=== PATIENT | male | born 1990 ===

== ENCOUNTER 2018-07-14 05:10 | Day surgery (SDC) | payer OTHER ==
--- NOTE | 2018-07-13 12:01 | NUR ---
Medical history obtained by using [employer] medical interpreter Gertrudis ID# [id number].
[~2018-07-14] VITALS: Ht 167.6 cm; Wt 107.5 kg
[2018-07-14] VITALS (13 sets, daily range): BP systolic 109–144; BP diastolic 58–77
[~2018-07-14 05:10] MED LIST: NKM
[2018-07-14] MEDS ORDERED: ceFAZolin 1gm IVPB IVPB ONE ×2 (06:00)
[2018-07-14] MEDS ORDERED: celeBREX 200mg Cap **SURGERY PATIENTS ONLY ORAL ONE (06:00)
[2018-07-14] MEDS ORDERED: oxyCONTIN 20mg tab ORAL ONE (06:00)
[2018-07-14] MEDS ORDERED: EPINEPHrine 1mg/1ml Amp ONE ×2 (06:34→08:48)
[2018-07-14] MEDS ORDERED: Duramorph PF 5mg/10ml amp ONE (06:35)
[2018-07-14] MEDS ORDERED: Kenalog-40 1ml Vial ONE (06:35)
[2018-07-14] MEDS ORDERED: Bupivacaine 0.25% Inj 30ml INJ ONE (06:35)
[2018-07-14] MEDS ORDERED: Lidocaine 1% 10mg/ml/Epi 0.005mg/ml 30ml vial INJ ONE (06:36)
[2018-07-14] MEDS ORDERED: LR 1000ml 1,000 ML IVLG SCH (06:37)
--- NOTE | 2018-07-14 06:38 | Anethesia Preoperative Eval ---
Anesthesia Pre-op PMH/ROS General Date of Evaluation: July 14, 2018 Anesthesiologist: Mili ASA Score: ASA 2 Mallampati Score Class I : Soft palate, uvula, fauces, pillars visible Class II: Soft palate, uvula, fauces visible Class III: Soft palate, base of uvula visible Class IV: Only hard plate visible Mallampati Classification: Class II Surgeon: Bryant Diagnosis: R Knee Pain Surgical Procedure: R ACL Repair Anesthesia History: none Family History: no anesthesia problems Allergies: Coded Allergies: No Known Allergies (Unverified , 07/13/18) Medications: see eMAR Patient NPO?: Yes Past Medical History Cardiovascular: Reports: HTN Other: obesity - MORBID BMI 40 Anesthesia Pre-op Phys. Exam Physician Exam Last Vital Signs Date Time Temp Pulse Resp B/P (MAP) Pulse Ox O2 Delivery O2 Flow Rate FiO2 07/14/18 06:03 98.4 88 20 144/77 99 Room Air Constitutional: NAD Neurologic: CN 2-12 intact Cardiovascular: RRR Respiratory: CTA Gastrointestinal: S/NT/ND Airway Exam Mallampati Score: Class II MO: full ROM: limited Teeth: intact Anesthesia Pre-op A/P Risk Assessment & Plan Assessment: ASA 2 Plan: GA, SED Status Change Before Surgery: No Pre-Antibiotics Dru Grams Ancef IV Given Within 1 Hr of Incision: Yes Time Given: 08:16 Mason Garces MD July 14, 2018 06:38
[2018-07-14] MEDS ORDERED: NS Irrig 4000ml IRRIG ONE ×4 (06:41→08:38)
[2018-07-14] MEDS ORDERED: LORazepam Inj 2mg/ml 1ml IV PRN (06:45)
[2018-07-14] MEDS ORDERED: oxyCODONE HCL/Acetaminophen 5/325mg ORAL PRN (06:45)
[2018-07-14] MEDS ORDERED: Metoclopramide 10mg/2ml Inj IVP PRN (06:45)
[2018-07-14] MEDS ORDERED: Labetalol 5mg/ml 20ml vial IV PRN (06:45)
[2018-07-14] MEDS ORDERED: Meperidine 50mg/ml Inj(FOR RIGORS ONLY) IVP PRN (06:45)
[2018-07-14] MEDS ORDERED: Hydromorphone 0.5mg/0.5ml inj IVP PRN (06:45)
[2018-07-14] MEDS ORDERED: DiphenhydrAMINE 50mg/ml Inj IVP PRN (06:45)
[2018-07-14] MEDS ORDERED: Atropine Sulfate 0.4mg/ml inj IVP PRN (06:45)
[2018-07-14] MEDS ORDERED: Acetaminophen (Non formulary) 100 ML IV ONE (06:45)
[2018-07-14] MEDS ORDERED: HYDROcodone/Acetamin 5/325 tab ORAL PRN ×2 (06:45→07:45)
[2018-07-14] MEDS ORDERED: Ketorolac 30mg Inj IV PRN ×2 (06:45)
[2018-07-14] MEDS ORDERED: Midazolam 2mg/2ml Inj IVP PRN (06:45)
[2018-07-14] MEDS ORDERED: fentaNYL 100 mcg/2 mL IV PRN (06:45)
[2018-07-14] MEDS ORDERED: HYDROcodone/Acetamin 7.5/325 tab ORAL PRN (06:45)
--- NOTE | 2018-07-14 06:47 | Immediate Post-Op Evaluation ---
Immediate Post-Op Evalulation Immediate Post-Op Evalulation Procedure: R Knee Arthroscopy Date of Evaluation: July 14, 2018 Time of Evaluation: 10:37 IV Fluids: 1000 LR Blood Products: 0 Estimated Blood Loss: 50 Urinary Output: 0 Blood Pressure Systolic: 116 Blood Pressure Diastolic: 60 Pulse Rate: 92 Respiratory Rate: 16 O2 Sat by Pulse Oximetry: 98 Temperature (Fahrenheit): 97.4 Pain Score (1-10): 2 Nausea: No Vomiting: No Complications 0 Patient Status: awake, reacts, patent, none Hydration Status: adequate Dru Grams Ancef IV Given Within 1 Hr of Incision: Yes Time Given: 08:16 Mason Garces MD July 14, 2018 06:47
--- NOTE | 2018-07-14 06:48 | 48 Hour Post Anesthesia Eval ---
Post Anesthesia Evaluation Procedure: R Knee Arthroscopy Date of Evaluation: July 14, 2018 Time of Evaluation: 12:44 Blood Pressure Systolic: 122 0: 71 Pulse Rate: 89 Respiratory Rate: 18 Temperature (Fahrenheit): 98.2 O2 Sat by Pulse Oximetry: 99 Airway: patent Nausea: No Vomiting: No Pain Intensity: 2 Hydration Status: adequate Cardiopulmonary Status: Stable Mental Status/LOC: patient returned to baseline Follow-up Care/Observations: 0 Post-Anesthesia Complications: 0 Follow-up care needed: ready to discharge Mason Garces MD July 14, 2018 06:48
[2018-07-14] MEDS ORDERED: Sodium Chloride 10ml vial INJ ONE (06:49)
[2018-07-14] MEDS ORDERED: Dexamethasone 4mg/ml vial ONE ×3 (06:49→08:49)
[2018-07-14] MEDS ORDERED: Lidocaine 1% MPF 10mg/ml 5ml ONE (06:49)
--- NOTE | 2018-07-14 07:38 | Operative Note - PDOC ---
Operative Note Operative Note Pre-op Diagnosis: right knee acl tear and medial and lateral minscus tear Procedure: see op report Post-op Diagnosis: same as pre-op plus Operative Findings: consistent w/pre-op dx studies Anesthesia: regional Specimen: none Complications: none Condition: stable Estimated Blood Loss: none Implant(s) used?: Yes Huey Hurtado MD July 14, 2018 07:38
--- NOTE | 2018-07-14 07:38 | Pre-Procedure Note/Attestation ---
Pre-Procedure Note/Attestation Complete Prior to Procedure Planned Procedure: right Procedure Narrative: knee arthroscopy acl reconstrction, possible medial and lateral menisectomy Indications for Procedure Pre-Operative Diagnosis: right knee acl tear and medial and lateral minscus tear Attestation I attest that I discussed the nature of the procedure; its benefits; risks and complications; and alternatives (and the risks and benefits of such alternatives ), prior to the procedure, with the patient (or the patient's legal labor representative). I attest that, if there was a reasonable possibility of needing a blood transfusion, the patient (or the patient's legal labor representative) was given the [facility] standardized written summary, pursuant to the [place] Impact Blood Safety Act ([place] Health and Safety Code # 1645, as amended). I attest that I re-evaluated the patient just prior to the surgery and that there has been no change in the patient's H&P, except as documented below: Huey Hurtado MD July 14, 2018 07:38
[2018-07-14] MEDS ORDERED: HYDROmorphone 1mg/ml Carpuject SUBQ PRN (07:45)
[2018-07-14] MEDS ORDERED: Tylenol #3 tab (300mg/30mg) ORAL PRN (07:45)
[2018-07-14] MEDS ORDERED: D5 1/2NS 1,000 ML IV SCH (07:45)
[2018-07-14] MEDS ORDERED: fentaNYL 100 mcg/2 mL IV ONE (08:34)
[2018-07-14] MEDS ORDERED: Ropivacaine 5mg/ml Vial 30ml INJ ONE (08:47)
--- NOTE | 2018-07-14 18:30 | Operative Note - Dictated ---
DATE OF OPERATION: 07/14/2018 PREOPERATIVE DIAGNOSES: 1. Right knee anterior cruciate ligament tear. 2. Right knee medial meniscus tear. 3. Right knee lateral meniscus tear. PROCEDURES: 1. Right knee arthroscopic anterior cruciate ligament reconstruction tibialis anterior allograft. 2. Right knee medial and lateral meniscectomy. 3. Synovectomy of the lateral patellofemoral compartment. SURGEON: Huey Hurtado M.D. ANESTHESIA: Femoral adductor with general. INDICATION FOR PROCEDURE: The patient is a pleasant gentleman, who has had a significant injury to his knee. He had a tear of the anterior cruciate ligament as well as meniscus. He failed conservative treatment and elected to undergo right knee arthroscopic medial and lateral meniscectomy and anterior cruciate ligament reconstruction. Risks, limitations, expectations, and complications of the procedure were discussed in detail. All questions addressed. DESCRIPTION OF PROCEDURE: After informed consent was obtained, the patient was brought to the operating room and placed under general anesthesia. The right leg was prepped and draped in a sterile manner. Time-out was performed. Examination under anesthesia showed positive reverse pivot shift and anterior Susanna's test. Tibialis anterior allograft was then fashioned on the back table and tensioned. An inferolateral stab incision was then made. Trocar was introduced into the knee joint. There is a significant tear of the posterior horn of medial meniscus. Partial meniscectomy using a shaver was performed. Intercondylar notch was entered. The anterior cruciate ligament was completely torn. The remnants of the anterior cruciate ligament were debrided to better visualize the bony landmarks. Lateral compartment was entered. There was a complete tear of the lateral meniscus partial meniscectomy was performed. Once that was done, the femoral and tibial tunnels were prepared. The tibialis anterior allograft was then passed and secured with suture relay as well as tibial interference screw. The knee was taken through range of motion. No impingement of the graft on the notch. Instruments removed. Portal sites were closed with 3-0 Monocryl sutures. ESTIMATED BLOOD LOSS: None. COMPLICATIONS: None. SPECIMENS: None. IMPLANTS: Include a tibialis anterior allograft, Biomet suture relay, and tibial interference screw. Huey Hurtado M.D. DR: CURTIS JOB#: [id number] CC:
== END 2018-07-14 14:10 | disposition home or self-care (01) ==
LOC: SUR 05:10
DX: S83.511A Sprain of anterior cruciate ligament of right knee, initial encounter (principal); S83.281A Other tear of lateral meniscus, current injury, right knee, initial encounter; S83.242A Other tear of medial meniscus, current injury, left knee, initial encounter; X58.XXXA Exposure to other specified factors, initial encounter; Y92.9 Unspecified place or not applicable; E66.3 Overweight; Z68.38 Body mass index [BMI] 38.0-38.9, adult; I10 Essential (primary) hypertension
CPT/HCPCS: 29880; 29888; 97161; C1713; J0171; J0690; J1100; J1885; J2250; J2405; J2795; J3010; 94003; 94150